=== PATIENT | male | born 1955 | race Caucasian/White ===

== ENCOUNTER 2017-02-08 11:21 | Inpatient (IN) | payer OTHER, MEDICARE ==
[~2017-02-08] VITALS: Ht 172.7 cm; Wt 80.3 kg
[2017-02-08] VITALS (7 sets, daily range): BP systolic 131–156; BP diastolic 58–72; PULSE 61–75; RESP 16–20; TEMP 97.1–97.9; O2SAT 98–99
[~2017-02-08 11:21] MED LIST: AUGM875T PO; GABA300C3 PO; NORC7.5T PO
--- NOTE | 2017-02-08 11:44 | PD ---
HPI Chief Complaint: Allergic/Adverse Reaction Time Seen by Provider: 11:33 Travel History International Travel<30 days: No Contact w/Intl Traveler<30days: No Traveled to known affect area: No History of Present Illness HPI This patient complains of allergic reaction. Started yesterday. Duration 24 hours. Severity is moderate. He has developed hives in both upper extremities as well as the torso. He is itching. He reported some shortness of breath and shallow breathing. He has swelling of the hands bilaterally. He denies any new medications. He tried Benadryl yesterday without relief. No exacerbating factors. No alleviating factors. 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) Heart Rhythm Problems: Yes (bradycardia ) Cancer: No Cardiovascular Problems: No High Cholesterol: Yes Chest Pain: Yes COPD: Yes Diabetes: No Diminished Hearing: No Endocrine: No Gastrointestinal Disorders: Yes (GERD, HX OF ACUTE CHOLECYSTITIS) Genitourinary: Yes (HX OF BLADDER INFECTIONS, KIDNEY INFECTIONS) Hepatitis: No Hypertension: Yes Immune Disorder: Yes (RHEUMATOID ARTHRITIS) Inguinal Hernia: Yes (2010) Musculoskeletal: Yes (RHEUMATOID ARTHRITIS, DEGENERATIVE JOINTS, NECK,BACK PAIN , RT WRIST) Neurologic: Yes (SEIZURES, BELLS PALSY) Psychiatric: No Reproductive: No Respiratory: Yes (copd) Immunizations Current: Yes Seizures: Yes (r/t adverse medication) Thyroid Disease: No Past Surgical History Abdominal Surgery: Yes (HERNIA REPAIR 3 TIMES, CHOLECYSTECTOMY 2013) AICD: No Body Medical Devices: DENTAL IMPLANTS Cholecystectomy: Yes (lap ayden ) Joint Replacement: No Pacemaker: No Other Surgery: Yes (HEMORROIDECTOMY) Social History Alcohol Use: No Tobacco Use: Yes (1/2 ppd) Substance Use: No Allergies-Medications (Allergen,Severity, Reaction): Coded Allergies: butorphanol (Unverified Allergy, Severe, SEIZURE, 02/08/17) seizure bacitracin (Unverified Allergy, Unknown, REDNESS, ITCHING, 02/08/17) gramicidin D (Unverified Allergy, Unknown, REDNESS, ITCHING, 02/08/17) neomycin (Unverified Allergy, Unknown, REDNESS, ITCHING, 02/08/17) polymyxin B (Unverified Allergy, Unknown, REDNESS, ITCHING, 02/08/17) Reported Meds & Prescriptions Reported Meds & Active Scripts Active Reported Gabapentin 300 Mg Cap 300 Mg PO TID Hydrocodone-Acetamin 7.5-325 (Hydrocodone/Acetaminophen) 7.5 Mg-325 Mg Tablet 1 Tab PO Q6HR Review of Systems General / Constitutional: No: Fever Eyes: No: Visual changes HENT: No: Headaches Cardiovascular: Positive: Edema, No: Chest Pain or Discomfort Respiratory: Positive: Shortness of Breath Gastrointestinal: No: Abdominal Pain Genitourinary: No: Dysuria Musculoskeletal: Positive: Edema, No: Pain Skin: Positive Rash, Positive Itching, Positive Hives Neurologic: No: Weakness Psychiatric: No: Depression Endocrine: No: Polydipsia Hematologic/Lymphatic: No: Easy Bruising Physical Exam Narrative GENERAL: Well-nourished, well-developed patient in no apparent distress. SKIN: Focused skin assessment reveals urticarial lesions around the lower back and waist as well as left axilla and both arms. Skin is Warm and dry. HEAD: Atraumatic. Normocephalic. EYES: Pupils equal and round. No scleral icterus. No injection or drainage. ENT: No nasal bleeding or discharge. Mucous membranes pink and moist. Uvula midline without swelling NECK: Trachea midline. No JVD. CARDIOVASCULAR: Regular rate and rhythm. No murmur appreciated. RESPIRATORY: No accessory muscle use. Clear to auscultation. Breath sounds equal bilaterally. GASTROINTESTINAL: Abdomen soft, non-tender, nondistended. Hepatic and splenic margins not palpable. MUSCULOSKELETAL: No obvious deformities. No clubbing. No cyanosis. Symmetric edema of both hands is noted. No edema the feet. NEUROLOGICAL: Awake and alert. No obvious cranial nerve deficits. Motor grossly within normal limits. Normal speech. PSYCHIATRIC: Appropriate mood and affect; insight and judgment normal. Data Data Last Documented VS Vital Signs Date Time Temp Pulse Resp B/P (MAP) Pulse Ox O2 Delivery O2 Flow Rate FiO2 02/08/17 12:39 62 16 131/63 (85) 99 Room Air 02/08/17 11:34 97.8 Orders Orders Basic Metabolic Panel (Bmp) (02/08/17 11:39) Complete Blood Count With Diff (02/08/17 11:39) Ecg Monitoring (02/08/17 11:39) Iv Access Insert/Monitor (02/08/17 11:39) Oximetry (02/08/17 11:39) Diphenhydramine Inj (Benadryl Inj) (02/08/17 11:45) Methylprednisolone So Succ Inj (Solumedr (02/08/17 11:45) Famotidine Inj (Pepcid Inj) (02/08/17 11:45) Sodium Chloride 0.9% Flush (Ns Flush) (02/08/17 11:45) Epinephrine (1:1000) Inj (Adrenalin (1:1 (02/08/17 11:45) Chest, Single Ap (02/08/17 ) Osmolality, Urine (02/08/17 13:33) Osmolality,Serum (02/08/17 13:33) Sodium, Random Urine (02/08/17 13:33) Echo 2d Comp With Doppler (02/08/17 ) B-Type Natriuretic Peptide (02/08/17 13:33) Hepatic Functional Panel (02/08/17 13:33) Admit To Inpatient (02/08/17 ) Vital Signs (Adult) Q4H (02/08/17 13:35) Activity Oob Ad Sandhya (02/08/17 13:35) Bobbin Inspector / Telemetry .CONTINUOUS (02/08/17 13:35) Diet Regular Basic (02/08/17 Lunch) Sodium Chloride 0.9% Flush (Ns Flush) (02/08/17 13:45) Sodium Chloride 0.9% Flush (Ns Flush) (02/08/17 21:00) Ondansetron Inj (Zofran Inj) (02/08/17 13:45) Scd Bilateral/Knee High BARRY.BID (02/08/17 13:35) Acetaminophen (Tylenol) (02/08/17 13:45) Acetamin-Hydrocod 325-5 Mg (Queen 5-325 (02/08/17 13:45) Naloxone Inj (Narcan Inj) (02/08/17 13:45) Magnesium Hydroxide Liq (Milk Of Magnesi (02/08/17 13:45) Sennosides (Senokot) (02/08/17 13:45) Bisacodyl Supp (Dulcolax Supp) (02/08/17 13:45) Lactulose Liq (Lactulose Liq) (02/08/17 13:45) Inpatient Certification (02/08/17 ) Basic Metabolic Panel (Bmp) (02/08/17 13:35) Basic Metabolic Panel (Bmp) (02/09/17 13:35) Admit Order (Ed Use Only) (02/08/17 13:38) Labs Laboratory Tests Test 02/08/17 11:55 White Blood Count 13.1 TH/MM3 Red Blood Count 4.80 MIL/MM3 Hemoglobin 14.4 GM/DL Hematocrit 42.7 % Mean Corpuscular Volume 88.9 FL Mean Corpuscular Hemoglobin 29.9 PG Mean Corpuscular Hemoglobin Concent 33.7 % Red Cell Distribution Width 11.9 % Platelet Count 258 TH/MM3 Mean Platelet Volume 7.0 FL Neutrophils (%) (Auto) 77.8 % Lymphocytes (%) (Auto) 16.3 % Monocytes (%) (Auto) 3.4 % Eosinophils (%) (Auto) 0.1 % Basophils (%) (Auto) 2.4 % Neutrophils # (Auto) 10.3 TH/MM3 Lymphocytes # (Auto) 2.1 TH/MM3 Monocytes # (Auto) 0.4 TH/MM3 Eosinophils # (Auto) 0.0 TH/MM3 Basophils # (Auto) 0.3 TH/MM3 CBC Comment DIFF FINAL Differential Comment Blood Urea Nitrogen 16 MG/DL Creatinine 1.40 MG/DL Random Glucose 113 MG/DL Calcium Level 8.0 MG/DL Sodium Level 123 MEQ/L Potassium Level 4.1 MEQ/L Chloride Level 89 MEQ/L Carbon Dioxide Level 23.4 MEQ/L Anion Gap 11 MEQ/L Estimat Glomerular Filtration Rate 52 ML/MIN MDM Medical Decision Making Medical Screen Exam Complete: Yes Emergency Medical Condition: Yes Medical Record Reviewed: Yes Differential Diagnosis Allergic reaction, anaphylaxis, dress syndrome Narrative Course I have reviewed the patient's electronic medical record. Patient was last in 2014. Patient went to his primary physician office this morning and I reviewed the history and physical from that visit. No medications were given he was just referred to the ER Presentation is consistent with allergic reaction Unclear what is reacting to IV placed I gave him intramuscular epinephrine as well as IV Solu-Medrol and IV Benadryl and IV H2 shamar Extended cardiac monitoring reveals sinus rhythm without ectopy or tachycardia CBC is normal Metabolic profile striking for sodium level of 123 I reviewed his prior labs and he has no prior hyponatremia in his history Is not alcohol drinker. He is not on diuretics. Etiology is unclear. He does drink a fair amount of free water daily and that could be the answer. I discussed with hospitalist who will admit for hyponatremia and allergic reaction. He is at risk for altered mental status and seizure with these levels of sodium. Also, his allergic reaction does not seem any better after treatment. Diagnosis Primary Impression: Hyponatremia Additional Impression: Allergic reaction Qualified Codes: T78.40XA - Allergy, unspecified, initial encounter Admitting Information Admitting Physician Requests: it Maged Lucero MD Feb 08, 2017 11:44
[2017-02-08] MEDS ORDERED: FAMOTIDINE 20 MG/2 ML VIAL IV PUSH ONE (11:45)
[2017-02-08] MEDS ORDERED: diphenhydrAMINE HCL 50 MG/ML VIAL IVP ONE (11:45)
[2017-02-08] MEDS ORDERED: methylPREDNISolone SOD SUCC 125 MG/2 ML VIAL IV PUSH ONE (11:45)
[2017-02-08] MEDS ORDERED: SODIUM CHLORIDE 0.9% FLUSH 10 ML FLUSH IV FLUSH PRN ×2 (11:45→13:45)
[2017-02-08] MEDS ORDERED: EPINEPHrine HCL (1:1000) 1 MG/ML VIAL IM ONE (11:45)
[2017-02-08] MEDS ORDERED: SYMB80AE INH (11:52)
[2017-02-08] MEDS ORDERED: LOPE-1 PO (11:52)
[2017-02-08] MEDS ORDERED: GABA300C5 PO (11:52)
[2017-02-08] MEDS ORDERED: MIRT30TA PO (11:52)
[2017-02-08] MEDS ORDERED: ESCI10TA PO (11:52)
[2017-02-08] MEDS ORDERED: FLUT50SP EACH NARE (11:52)
[2017-02-08] MEDS ORDERED: HYDR-3580 PO (11:52)
[2017-02-08 12:00] LABS: AUTOMATED NEUTROPHIL # 10.3 TH/MM3 (1.8-7.7); BASOPHIL # 0.3 TH/MM3 (0-0.2); BASOPHIL % 2.4 % (0.0-2.0); EOSINOPHIL % 0.1 % (0.0-4.0); HEMATOCRIT 42.7 % (39.0-51.0); HEMO FLAGS DIFF FINAL; LYMPH % 16.3 % (9.0-44.0); LYMPHOCYTE # 2.1 TH/MM3 (1.0-4.8); MEAN CELL VOLUME 88.9 FL (80.0-100.0); MEAN CORPUSCULAR HEMOGLOBIN 29.9 PG (27.0-34.0); MEAN CORPUSCULAR HGB CONC 33.7 % (32.0-36.0); MONO % 3.4 % (0.0-8.0); NEUT % 77.8 % (16.0-70.0); PLATELET COUNT 258 TH/MM3 (150-450); RED CELL DISTRIBUTION WIDTH 11.9 % (11.6-17.2); WHITE BLOOD COUNT 13.1 TH/MM3 (4.0-11.0)
[2017-02-08 12:48] LABS: BICARBONATE 23.4 MEQ/L (21.0-32.0); POTASSIUM 4.1 MEQ/L (3.5-5.1)
[2017-02-08] MEDS ORDERED: SENNOSIDES 8.6 MG TAB PO PRN (13:45)
[2017-02-08] MEDS ORDERED: NALOXONE HCL 0.4 MG/ML AMP IV PUSH PRN (13:45)
[2017-02-08] MEDS ORDERED: ONDANSETRON HCL 4 MG/2 ML VIAL IVP PRN (13:45)
[2017-02-08] MEDS ORDERED: ACETAMINOPHEN 325 MG TAB PO PRN (13:45)
[2017-02-08] MEDS ORDERED: MAGNESIUM HYDROXIDE SUSP 30 ML CUP PO PRN (13:45)
[2017-02-08] MEDS ORDERED: BISACODYL 10 MG SUPP RECTAL PRN (13:45)
[2017-02-08] MEDS ORDERED: LACTULOSE SYRUP 20 GM/30 ML CUP PO PRN (13:45)
[2017-02-08] MEDS ORDERED: ACETAMINOPHEN/HYDROcodone 325 MG/5 MG TAB PO PRN (13:45)
--- NOTE | 2017-02-08 13:47 | RADRPT ---
EXAM DATE/TIME: 02/08/2017 13:37 [facility] COMPARISON: CHEST SINGLE AP, September 30, 2013, 8:04. INDICATIONS : Short of breath, possible allergic reaction to meds. MEDICAL HISTORY : Chronic obstructive pulmonary disease. Hypertension SURGICAL HISTORY : None. ENCOUNTER: Initial ACUITY: 2 days PAIN SCORE: 0/10 LOCATION: Bilateral chest FINDINGS: A single view of the chest demonstrates the lungs to be symmetrically aerated without evidence of mas s, infiltrate or effusion. The cardiomediastinal contours are unremarkable. There is a calcified gra nuloma again noted in the right lung base. There are multiple overlying electrocardiogram leads. Osse ous structures are intact. CONCLUSION: No acute disease. Raheem Díaz MD on February 08, 2017 at 13:45 Board Certified Radiologist. This report was verified electronically.
[2017-02-08 14:31] LABS: POTASSIUM 4.2 MEQ/L (3.5-5.1)
[2017-02-08 14:56] LABS: BICARBONATE 22.6 MEQ/L (21.0-32.0); INDIRECT BILIRUBIN 0.7 MG/DL (0.0-0.8)
--- NOTE | 2017-02-08 15:35 | HHI.HP ---
[facility] Hector Luciano MD Admission Diagnosis hyponatremia, allergic rxn Diagnoses: Travel History International Travel<30 Days: No Contact w/Intl Traveler <30 Da: No Traveled to Known Affected Are: No History of Present Illness This is a 61 year-old male with past medical history of COPD and degenerative joint disease who presented to the ER for evaluation of a pruritic rash that began yesterday on his hands and trunk. He also noticed some hand swelling. He took Benadryl however that did not alleviate symptoms so he presented to the ER. Patient denied any lip swelling, difficulty swallowing or breathing, nausea vomiting or intestinal cramps. Patient was given Solu-Medrol and Benadryl in the ER with improvement of the symptoms. Symptoms moderate. No provocative factors. No exposure to plants, new medications or shampoos. He was found to have sodium of 123 in the emergency department. He does not drink alcohol. He drinks 4 12 ounce bottles of aquafina water daily. No previous history of hyponatremia. No headache, vision changes, or balance difficulties. Review of Systems Constitutional: DENIES: Fever, Chills Eyes: DENIES: Blurred vision, Diplopia Ears, nose, mouth, throat: DENIES: Throat pain, Odynophagia Respiratory: COMPLAINS OF: Cough (chronic), Shortness of breath (chronic) Cardiovascular: DENIES: Chest pain, Palpitations Gastrointestinal: DENIES: Abdominal pain, Nausea, Vomiting Genitourinary: DENIES: Urgency, Dysuria Musculoskeletal: COMPLAINS OF: Back pain, DENIES: Joint Swelling, Neck pain Integumentary: DENIES: Pruritus, Rash Hematologic/lymphatic: DENIES: Lymphadenopathy Immunologic/allergic: COMPLAINS OF: Urticaria Neurologic: DENIES: Headache, Localized weakness, Poor Balance Psychiatric: DENIES: Anxiety, Confusion Past Family Social History Past Medical History COPD DJD on disability Chronic back pain and neuropathy Past Surgical History Hemorrhoidectomy Cholecystectomy Back surgery Reported Medications Allergies Coded Allergies Type Severity Reaction Last Updated Verified butorphanol Allergy Severe SEIZURE 02/08/17 No bacitracin Allergy Unknown REDNESS, ITCHING 02/08/17 No gramicidin D Allergy Unknown REDNESS, ITCHING 02/08/17 No neomycin Allergy Unknown REDNESS, ITCHING 02/08/17 No polymyxin B Allergy Unknown REDNESS, ITCHING 02/08/17 No Active Scripts Medications Dose Route/Sig Max Daily Dose Days Date Category Gabapentin 300 Mg Cap 300 Mg PO TID 02/08/17 Reported Hydrocodone-Acetamin 7.5-325 (Hydrocodone/Acetaminophen) 7.5 Mg-325 Mg Tablet 1 Tab PO Q6HR 02/08/17 Reported Allergies: Coded Allergies: butorphanol (Unverified Allergy, Severe, SEIZURE, 02/08/17) seizure bacitracin (Unverified Allergy, Unknown, REDNESS, ITCHING, 02/08/17) gramicidin D (Unverified Allergy, Unknown, REDNESS, ITCHING, 02/08/17) neomycin (Unverified Allergy, Unknown, REDNESS, ITCHING, 02/08/17) polymyxin B (Unverified Allergy, Unknown, REDNESS, ITCHING, 02/08/17) Family History Daughter had congenital heart disease and 10 years ago 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 Denies alcohol use. Continues to smoke about half a pack of cigarettes a day. Physical Exam Vital Signs Vital Signs Date Time Temp Pulse Resp B/P (MAP) Pulse Ox O2 Delivery O2 Flow Rate FiO2 02/08/17 14:36 66 16 131/58 (82) 99 02/08/17 13:35 64 16 136/62 (86) 02/08/17 13:30 66 16 Room Air 02/08/17 12:39 62 16 131/63 (85) 99 Room Air 02/08/17 11:45 62 150/62 02/08/17 11:45 16 98 Room Air 02/08/17 11:37 75 16 98 Room Air 02/08/17 11:34 97.8 75 16 150/62 (91) 98 Physical Exam GENERAL: This is a well-nourished, well-developed CM patient, in no apparent distress. SKIN: Scattered erythematous patches on hands, and to lesser extremity on trunk and lower abdomen. Some edema of hands. HEAD: Atraumatic. Normocephalic. EYES: Pupils equal round and reactive. Extraocular motions intact. No scleral icterus. No injection or drainage. ENT: Throat without erythema, tonsillar hypertrophy or exudate. Uvula midline. Airway patent. NECK: Trachea midline. No JVD or lymphadenopathy. CARDIOVASCULAR: Regular rate and rhythm without murmurs, gallops, or rubs. RESPIRATORY: nonlabored breathing on RA. Breath sounds equal bilaterally. faint exp wheezing b/l. GASTROINTESTINAL: BS+ Abdomen soft, non-tender, nondistended. MUSCULOSKELETAL: No pedal edema. NEUROLOGICAL: Awake and alert, oriented. Motor and sensory grossly within normal limits. Normal speech. Laboratory Laboratory Tests Test 02/08/17 11:55 02/08/17 13:45 02/08/17 14:25 02/08/17 14:30 White Blood Count 13.1 Red Blood Count 4.80 Hemoglobin 14.4 Hematocrit 42.7 Mean Corpuscular Volume 88.9 Mean Corpuscular Hemoglobin 29.9 Mean Corpuscular Hemoglobin Concent 33.7 Red Cell Distribution Width 11.9 Platelet Count 258 Mean Platelet Volume 7.0 Neutrophils (%) (Auto) 77.8 Lymphocytes (%) (Auto) 16.3 Monocytes (%) (Auto) 3.4 Eosinophils (%) (Auto) 0.1 Basophils (%) (Auto) 2.4 Neutrophils # (Auto) 10.3 Lymphocytes # (Auto) 2.1 Monocytes # (Auto) 0.4 Eosinophils # (Auto) 0.0 Basophils # (Auto) 0.3 CBC Comment DIFF FINAL Differential Comment Blood Urea Nitrogen 16 15 Creatinine 1.40 1.30 Random Glucose 113 128 Calcium Level 8.0 8.2 Sodium Level 123 123 Potassium Level 4.1 4.2 Chloride Level 89 89 Carbon Dioxide Level 23.4 22.6 Anion Gap 11 11 Estimat Glomerular Filtration Rate 52 56 Total Protein 6.7 Albumin 3.5 Alkaline Phosphatase 62 Aspartate Amino Transf (AST/SGOT) 18 Alanine Aminotransferase (ALT/SGPT) 15 Total Bilirubin 1.0 Direct Bilirubin 0.3 Indirect Bilirubin 0.7 B-Type Natriuretic Peptide 22 Result Diagram: 02/08/17 1155 02/08/17 1345 Imaging Last Impressions Chest X-Ray 02/08/17 0000 Signed Impressions: Service Date/Time: Wednesday, February 08, 2017 13:37 - CONCLUSION: No acute disease. MD Marii Truong VTE Risk Assessment Caprini VTE Risk Assessment: No/Low Risk (score <= 1) Caprini Risk Assessment Model Point Value = 1 Point Value = 2 Point Value = 3 Point Value = 5 Age 41-60 Minor surgery BMI > 25 kg/m2 Swollen legs Varicose veins or History of unexplained or recurrent spontaneous Oral contraceptives or hormone replacement Sepsis (< 1 month) Serious lung disease, including pneumonia (< 1 month) Abnormal pulmonary function Acute myocardial infarction Congestive heart failure (< 1 month) History of inflammatory bowel disease Medical patient at bed rest Age 61-74 Arthroscopic surgery Major open surgery (> 45 min) Laparoscopic surgery (> 45 min) Malignancy Confined to bed (> 72 hours) Immobilizing plaster cast Central venous access Age >= 75 History of VTE Family history of VTE Factor V Leiden Prothrombin [id number] Lupus anticoagulant Anticardiolipin antibodies Elevated serum homocysteine Heparin-induced thrombocytopenia Other congenital or acquired thrombophilia Stroke (< 1 month) Elective arthroplasty Hip, pelvis, or leg fracture Acute spinal cord injury (< 1 month) Prophylaxis Regimen Total Risk Factor Score Risk Level Prophylaxis Regimen 0-1 Low Early ambulation 2 Moderate Order ONE of the following: *Sequential Compression Device (SCD) *Heparin 5000 units SQ BID 3-4 Higher Order ONE of the following medications: *Heparin 5000 units SQ TID *Enoxaparin/Lovenox 40 mg SQ daily (WT < 150 kg, CrCl > 30 mL/min) *Enoxaparin/Lovenox 30 mg SQ daily (WT < 150 kg, CrCl > 10-29 mL/min) *Enoxaparin/Lovenox 30 mg SQ BID (WT < 150 kg, CrCl > 30 mL/min) AND/OR *Sequential Compression Device (SCD) 5 or more Highest Order ONE of the following medications: *Heparin 5000 units SQ TID (Preferred with Epidurals) *Enoxaparin/Lovenox 40 mg SQ daily (WT < 150 kg, CrCl > 30 mL/min) *Enoxaparin/Lovenox 30 mg SQ daily (WT < 150 kg, CrCl > 10-29 mL/min) *Enoxaparin/Lovenox 30 mg SQ BID (WT < 150 kg, CrCl > 30 mL/min) AND *Sequential Compression Device (SCD) Assessment and Plan Problem List: (1) Urticaria ICD Code: L50.9 - Urticaria, unspecified (2) Hyponatremia ICD Code: E87.1 - Hypo-osmolality and hyponatremia Status: Acute (3) Allergic reaction ICD Code: T78.40XA - Allergy, unspecified, initial encounter Status: Acute Assessment and Plan -Euvolemic hyponatremia - unclear etiology at this time - not apparent from history. Will obtain serum and urin osm, urine na. As he is not symptomatic at this time, will treat with fluid restriction. Serial BMPs. -Urticaria - trigger unknown. No evidence of anaphylaxis. Continue steroids and benadryl. -COPD - cont duonebs as needed. smoking cessation. DVT px - scds. Problem Qualifiers (1) Allergic reaction: Qualified Codes: T78.40XA - Allergy, unspecified, initial encounter Mohini Kline MD Feb 08, 2017 15:35
[2017-02-08] MEDS: diphenhydrAMINE HCL 50 MG/ML VIAL IV PUSH PRN ×2 (15:40→21:33)
[2017-02-08] MEDS ORDERED: ESCITALOPRAM OXALATE 10 MG TAB PO PRN (16:30)
[2017-02-08] MEDS: GABAPENTIN 300 MG CAP PO SCH (17:50)
[2017-02-08] MEDS: ACETAMINOPHEN/HYDROcodone 325 MG/7.5 MG TAB PO PRN ×2 (17:50→23:35)
[2017-02-08] MEDS ORDERED: ACETAMINOPHEN/HYDROcodone 325 MG/7.5 MG TAB PO SCH (18:00)
[2017-02-08] MEDS ORDERED: MIRTAZAPINE 15 MG TAB PO SCH (21:00)
[2017-02-08] MEDS: FLUTICASONE PROPIONATE 50 MCG/ACT 16 GM NASAL SPRAY EACH NARE SCH (21:26)
[2017-02-08] MEDS: BUDESONIDE-FORMOTEROL 80/4.5 MCG INHALER INH SCH (21:27)
[2017-02-08] MEDS: SODIUM CHLORIDE 0.9% FLUSH 10 ML FLUSH IV FLUSH SCH (21:27)
[2017-02-08] MEDS: methylPREDNISolone SOD SUCC 125 MG/2 ML VIAL IV PUSH SCH (21:32)
[2017-02-09] VITALS (7 sets, daily range): BP systolic 130–162; BP diastolic 63–87; PULSE 52–86; RESP 20; TEMP 96.1–97.7; O2SAT 95–99
[2017-02-09] MEDS: BUDESONIDE-FORMOTEROL 80/4.5 MCG INHALER INH SCH (09:33)
[2017-02-09] MEDS: GABAPENTIN 300 MG CAP PO SCH ×2 (09:34→12:28)
[2017-02-09] MEDS: FLUTICASONE PROPIONATE 50 MCG/ACT 16 GM NASAL SPRAY EACH NARE SCH (09:34)
[2017-02-09] MEDS: SODIUM CHLORIDE 0.9% FLUSH 10 ML FLUSH IV FLUSH SCH (09:34)
[2017-02-09] MEDS: methylPREDNISolone SOD SUCC 125 MG/2 ML VIAL IV PUSH SCH (09:36)
[2017-02-09 10:56] LABS: POTASSIUM 4.2 MEQ/L (3.5-5.1)
[2017-02-09 10:59] LABS: BICARBONATE 24.9 MEQ/L (21.0-32.0)
--- NOTE | 2017-02-09 14:11 | HHI.PR ---
Subjective Remarks Patient states rash and pruritus have resolved. Sodium improved to 129 with fluid restriction and he would like to go home. Objective Vitals Vital Signs Date Time Temp Pulse Resp B/P (MAP) Pulse Ox O2 Delivery O2 Flow Rate FiO2 02/09/17 08:00 67 02/09/17 07:31 96.1 73 20 130/74 (92) 96 02/09/17 04:00 97.7 66 20 162/74 (103) 96 02/09/17 00:52 52 02/09/17 00:00 97.5 59 20 144/67 (92) 95 02/08/17 20:00 97.9 61 20 145/69 (94) 98 02/08/17 16:11 97.1 73 16 156/72 (100) 98 02/08/17 14:36 66 16 131/58 (82) 99 I/O 02/08/17 02/08/17 02/08/17 02/09/17 02/09/17 02/09/17 07:00 15:00 23:00 07:00 15:00 23:00 Output Total 400 ml Balance -400 ml Output Urine Total 400 ml Result Diagram: 02/08/17 1155 02/09/17 1030 Objective Remarks GENERAL: Well-nourished, well-developed patient. SKIN: Warm and dry. No rashes. HEAD: Normocephalic. EYES: No scleral icterus. No injection or drainage. NECK: Supple, trachea midline. No JVD or lymphadenopathy. CARDIOVASCULAR: Regular rate and rhythm without murmurs, gallops, or rubs. RESPIRATORY: Breath sounds equal bilaterally. No accessory muscle use. GASTROINTESTINAL: Abdomen soft, non-tender, nondistended. EXTREMITIES: Trace edema of hands. NEUROLOGICAL: Awake, alert, and oriented x 3. Non-focal. A/P Problem List: (1) Urticaria ICD Code: L50.9 - Urticaria, unspecified (2) Hyponatremia ICD Code: E87.1 - Hypo-osmolality and hyponatremia Status: Acute (3) Allergic reaction ICD Code: T78.40XA - Allergy, unspecified, initial encounter Status: Acute (4) Low TSH level ICD Code: R94.6 - Abnormal results of thyroid function studies Assessment and Plan -Euvolemic hyponatremia - unclear etiology at this time -possibly due to excessive water intake. Sodium improved with fluid restriction. serum and urin osm, urine na reviewed and does not need a clear picture of any single diagnosis. He is not symptomatic. TSH was low. He is not on diuretics. Patient requesting to go home. He agrees to get his labs drawn on Saturday and follow-up with his PCP on Saturday. I have ordered a BMP and thyroid studies to be copied to his PCP Dr. Edi Luciano. -Urticaria - trigger unknown. No evidence of anaphylaxis. Continue steroids and benadryl. Give prednisone for several more days. -COPD - cont duonebs as needed. smoking cessation. DVT px - scds. Problem Qualifiers (1) Allergic reaction: Qualified Codes: T78.40XA - Allergy, unspecified, initial encounter Mohini Kline MD Feb 09, 2017 14:11
[2017-02-09] MEDS ORDERED: DIPH25CA PO (14:34)
[2017-02-09] MEDS ORDERED: PRED20 PO (14:34)
== END 2017-02-09 15:25 | disposition home or self-care (01) | DRG 607 ==
LOC: PHED 11:21 → PHEDA 13:42 → PH3A 14:42
PROVIDERS: ADMIT Family Medicine; ATTEND Family Medicine
DX: L50.0 Allergic urticaria (principal); E87.1 Hypo-osmolality and hyponatremia; I10 Essential (primary) hypertension; J44.9 Chronic obstructive pulmonary disease, unspecified; M06.9 Rheumatoid arthritis, unspecified; M54.9 Dorsalgia, unspecified; G89.29 Other chronic pain; G62.9 Polyneuropathy, unspecified; F17.210 Nicotine dependence, cigarettes, uncomplicated; Z88.1 Allergy status to other antibiotic agents
CPT/HCPCS: 71010; 80048; 80076; 83880; 83930; 83935; 84300; 84443; 85025; 96372; 96374; 96375; J0171; J1200; J2930